=== PATIENT | male | born 1950 ===

== ENCOUNTER 2020-05-26 20:16 | Emergency (ER) | payer MEDICARE, BC ==
--- NOTE | 2020-05-26 21:59 | EDM.PDOC ---
ED HPI GENERAL MEDICAL PROBLEM - General Chief Complaint: Laceration Stated Complaint: CUT CHEECK Time Seen by Provider: 05/26/20 20:40 Source of Information: Reports: Patient History Limitations: Reports: No Limitations - History of Present Illness INITIAL COMMENTS - FREE TEXT/NARRATIVE: states he had sutures placed in his left cheek about 3 days ago ( unsure of sate) , 1-2 sutures came out spontaneously . then today he bumpeed his face and it started bleeding States he had surgery on the area years ago Onset: Today Onset Date: 05/26/20 Duration: Getting Worse Location: Reports: Face (left cheek) Quality: Reports: Ache Severity: Moderate Improves with: Reports: Rest Associated Symptoms: Reports: No Other Symptoms, Other (bleeding from wound site) ED ROS GENERAL - Review of Systems Review Of Systems: See Below Constitutional: Reports: No Symptoms HEENT: Reports: No Symptoms Respiratory: Reports: No Symptoms Cardiovascular: Reports: No Symptoms Endocrine: Reports: No Symptoms GI/Abdominal: Reports: No Symptoms Musculoskeletal: Reports: No Symptoms Skin: Reports: Other (repaired laceration of left cheek with one suture still in place) ED EXAM, SKIN/RASH Exam: See Below Exam Limited By: No Limitations General Appearance: Alert, WD/WN, No Apparent Distress Eye Exam: Bilateral Eye: EOMI Ears: Normal External Exam Nose: Normal Inspection Head: Atraumatic, Normocephalic Neck: Supple, Non-Tender Respiratory/Chest: Lungs Clear, Normal Breath Sounds Cardiovascular: Regular Rate, Rhythm GI/Abdominal: Soft, Non-Tender Neurological: Alert, Oriented, CN II-XII Intact Location, Skin: Face (left cheek with laceration about 3 cm long one suture in placed , bleeding controlled with pressure on the area) Course - Re-Assessments/Exams Free Text/Narrative Re-Assessment/Exam: 05/26/20 22:00 laceration on the cheek repaired with dermabond and then steri-strips applied to the area Pt tolerated this well Departure - Departure Time of Disposition: 10:05 Disposition: Home, Self-Care 01 Condition: Fair Clinical Impression: Laceration of cheek, left, complicated, Broken skin - Discharge Information *PRESCRIPTION DRUG MONITORING PROGRAM REVIEWED*: Not Applicable *COPY OF PRESCRIPTION DRUG MONITORING REPORT IN PATIENT RYAN: Not Applicable Instructions: Sutures, Kila, or Adhesive Wound Closure, [id number] Referrals: Zohaib Wells MD [Primary Care Provider] -
== END 2020-05-26 22:08 | disposition home or self-care (01) ==
LOC: FB.ED 20:16
DX: S01.412A Laceration without foreign body of left cheek and temporomandibular area, initial encounter (principal); W22.8XXA Striking against or struck by other objects, initial encounter
CPT/HCPCS: 12013; 99282; 99282-25

== ENCOUNTER 2022-10-24 18:08 | Inpatient (IN) | payer MEDICARE, BC ==
[2022-10-24] MEDS: Sodium Chloride 0.9% 10 ML Syringe FLUSH PRN ×3 (18:20→23:19)
[2022-10-24 18:48] LABS: BASE EXCESS VENOUS,POC 0 mmol/L (-2 - 3+); PCO2 VENOUS,POC 30 mmHg (41-51); PH VENOUS,POC 7.48 pH Units (7.32-7.43)
[2022-10-24 18:55] LABS: ESTIMATED GFR 58 mL/min (>60)
[2022-10-24] MEDS ORDERED: Sodium Chloride 0.9% 10 ML Syringe FLUSH PRN (19:29)
[2022-10-24] MEDS ORDERED: Acetaminophen 325 MG Tab PO PRN (19:29)
[2022-10-24] MEDS ORDERED: Enoxaparin 40 MG/0.4 ML Syringe SUBCUT SCH (19:30)
[2022-10-24 19:52] LABS: CORONAVIRUS COVID-19 NAA NEGATIVE (NEGATIVE)
[2022-10-24] MEDS: Enoxaparin 40 MG/0.4 ML Syringe SUBCUT SCH (21:47)
[2022-10-24] MEDS: cefTRIAXone 1 GM Vial IVPUSH SCH (22:02)
[2022-10-24] MEDS: Azithromycin 500 MG in Sodium Chloride 0.9% 250 ML IV SCH (22:11)
[2022-10-25 06:38] LABS: ESTIMATED GFR 79 mL/min (>60)
[2022-10-25] MEDS ORDERED: Nitroglycerin 0.4 MG Tab.SL SL PRN (10:23)
[2022-10-25] MEDS ORDERED: Loratadine 10 MG Tab PO PRN (10:23)
[2022-10-25] MEDS ORDERED: Acetaminophen 325 MG Tab PO PRN (10:23)
[2022-10-25] MEDS: Metoprolol Tartrate 100 MG Tab PO SCH (10:42)
[2022-10-25] MEDS: Lisinopril 20 MG Tab PO SCH (10:42)
[2022-10-25] MEDS: amLODIPine 10 MG Tab PO SCH (10:42)
[2022-10-25] MEDS: Citalopram 10 MG Tab PO SCH (10:42)
[2022-10-25] MEDS: QUEtiapine 100 MG Tab PO SCH ×3 (10:42→22:00)
[2022-10-25] MEDS: Aspirin 81 MG Tab.EC PO SCH (10:42)
[2022-10-25] MEDS: Carboxymethylcellulose Sodium 0.5% Ophth Soln 15 ML Bottle EYEBOTH SCH (10:43)
[2022-10-25] MEDS: cefTRIAXone 1 GM Vial IVPUSH SCH (18:53)
[2022-10-25] MEDS: Sodium Chloride 0.9% 10 ML Syringe FLUSH PRN ×2 (18:55→21:59)
[2022-10-25] MEDS: Azithromycin 500 MG in Sodium Chloride 0.9% 250 ML IV SCH (18:58)
[2022-10-25] MEDS: atorvaSTATin 20 MG Tab PO SCH (21:59)
[2022-10-25] MEDS: Enoxaparin 40 MG/0.4 ML Syringe SUBCUT SCH (22:00)
[2022-10-26 06:39] LABS: ESTIMATED GFR 90 mL/min (>60)
[2022-10-26] MEDS: Aspirin 81 MG Tab.EC PO SCH (08:44)
[2022-10-26] MEDS: Citalopram 10 MG Tab PO SCH (08:44)
[2022-10-26] MEDS: QUEtiapine 100 MG Tab PO SCH ×3 (08:45→21:12)
[2022-10-26] MEDS: Carboxymethylcellulose Sodium 0.5% Ophth Soln 15 ML Bottle EYEBOTH SCH (08:45)
[2022-10-26] MEDS: Furosemide 20 MG Tab PO SCH (08:45)
[2022-10-26] MEDS: Lisinopril 20 MG Tab PO SCH (08:49)
[2022-10-26] MEDS: amLODIPine 10 MG Tab PO SCH (08:50)
[2022-10-26] MEDS: Metoprolol Tartrate 100 MG Tab PO SCH (08:50)
[2022-10-26] MEDS ORDERED: Furosemide 20 MG/2 ML VIAL IVPUSH ONE (10:04)
[2022-10-26] MEDS: Sodium Chloride 0.9% 10 ML Syringe FLUSH PRN ×3 (10:15→19:30)
[2022-10-26] MEDS ORDERED: Furosemide 40 MG/4 ML VIAL IVPUSH ONE (11:09)
[2022-10-26] MEDS: cefTRIAXone 1 GM Vial IVPUSH SCH (18:36)
[2022-10-26] MEDS: Azithromycin 500 MG in Sodium Chloride 0.9% 250 ML IV SCH (18:36)
[2022-10-26] MEDS: Enoxaparin 40 MG/0.4 ML Syringe SUBCUT SCH (21:12)
[2022-10-26] MEDS: atorvaSTATin 20 MG Tab PO SCH (21:12)
[2022-10-26] MEDS: Albuterol/Ipratropium 3.0-0.5 MG/3 ML Neb Soln NEB PRN (21:14)
[2022-10-27 07:03] LABS: ESTIMATED GFR 90 mL/min (>60)
[2022-10-27] MEDS: Citalopram 10 MG Tab PO SCH (08:28)
[2022-10-27] MEDS: Metoprolol Tartrate 100 MG Tab PO SCH (08:28)
[2022-10-27] MEDS: amLODIPine 10 MG Tab PO SCH (08:29)
[2022-10-27] MEDS: QUEtiapine 100 MG Tab PO SCH ×3 (08:29→20:53)
[2022-10-27] MEDS: Aspirin 81 MG Tab.EC PO SCH (08:29)
[2022-10-27] MEDS: Carboxymethylcellulose Sodium 0.5% Ophth Soln 15 ML Bottle EYEBOTH SCH (08:30)
[2022-10-27] MEDS: Lisinopril 20 MG Tab PO SCH (08:30)
[2022-10-27] MEDS: Albuterol/Ipratropium 3.0-0.5 MG/3 ML Neb Soln NEB PRN ×2 (08:35→20:38)
[2022-10-27] MEDS: Amoxicillin/Clavulanate K 875-125 MG Tab PO SCH ×2 (11:17→22:06)
[2022-10-27] MEDS: Azithromycin 500 MG Tab PO SCH (17:13)
[2022-10-27] MEDS: atorvaSTATin 20 MG Tab PO SCH (20:53)
[2022-10-27] MEDS: Enoxaparin 40 MG/0.4 ML Syringe SUBCUT SCH (21:05)
[2022-10-28 06:24] LABS: ESTIMATED GFR 90 mL/min (>60)
[2022-10-28] MEDS: Albuterol/Ipratropium 3.0-0.5 MG/3 ML Neb Soln NEB PRN (07:27)
[2022-10-28] MEDS: Metoprolol Tartrate 100 MG Tab PO SCH (08:59)
[2022-10-28] MEDS: QUEtiapine 100 MG Tab PO SCH ×3 (08:59→20:40)
[2022-10-28] MEDS: amLODIPine 10 MG Tab PO SCH (09:00)
[2022-10-28] MEDS: Citalopram 10 MG Tab PO SCH (09:00)
[2022-10-28] MEDS: Aspirin 81 MG Tab.EC PO SCH (09:00)
[2022-10-28] MEDS: Furosemide 20 MG Tab PO SCH (09:00)
[2022-10-28] MEDS: Carboxymethylcellulose Sodium 0.5% Ophth Soln 15 ML Bottle EYEBOTH SCH (09:01)
[2022-10-28] MEDS: Lisinopril 20 MG Tab PO SCH (09:01)
[2022-10-28] MEDS: Amoxicillin/Clavulanate K 875-125 MG Tab PO SCH ×2 (10:42→21:20)
[2022-10-28] MEDS: Albuterol/Ipratropium 3.0-0.5 MG/3 ML Neb Soln NEB SCH ×3 (14:34→21:28)
[2022-10-28] MEDS: QUEtiapine 25 MG Tab PO PRN ×2 (17:10→18:18)
[2022-10-28] MEDS: Azithromycin 500 MG Tab PO SCH (18:18)
[2022-10-28] MEDS: atorvaSTATin 20 MG Tab PO SCH (20:40)
[2022-10-28] MEDS: Enoxaparin 40 MG/0.4 ML Syringe SUBCUT SCH (21:27)
[2022-10-29] MEDS: Albuterol/Ipratropium 3.0-0.5 MG/3 ML Neb Soln NEB SCH ×3 (01:55→10:04)
[2022-10-29 06:45] LABS: ESTIMATED GFR 79 mL/min (>60)
[2022-10-29] MEDS: Carboxymethylcellulose Sodium 0.5% Ophth Soln 15 ML Bottle EYEBOTH SCH (08:06)
[2022-10-29] MEDS: QUEtiapine 100 MG Tab PO SCH (08:06)
[2022-10-29] MEDS: Aspirin 81 MG Tab.EC PO SCH (08:06)
[2022-10-29] MEDS: Citalopram 10 MG Tab PO SCH (08:07)
[2022-10-29] MEDS: amLODIPine 10 MG Tab PO SCH (08:11)
[2022-10-29] MEDS: Lisinopril 20 MG Tab PO SCH (08:11)
[2022-10-29] MEDS: Metoprolol Tartrate 100 MG Tab PO SCH (08:11)
[2022-10-29] MEDS: Amoxicillin/Clavulanate K 875-125 MG Tab PO SCH (10:04)
== END 2022-10-29 13:45 | disposition home health service (06) | DRG 194 ==
LOC: FB.ED 18:08 → FB.MS 19:29
PROVIDERS: ADMIT Family Medicine; ATTEND Student in an Organized Health Care Education/Training Program
DX: J18.9 Pneumonia, unspecified organism (principal); E86.0 Dehydration; F03.B18 Unspecified dementia, moderate, with other behavioral disturbance; F03.90 Unspecified dementia, unspecified severity, without behavioral disturbance, psychotic disturbance, mood disturbance, and anxiety; I10 Essential (primary) hypertension; I25.10 Atherosclerotic heart disease of native coronary artery without angina pectoris; I11.0 Hypertensive heart disease with heart failure; I50.9 Heart failure, unspecified; Z79.84 Long term (current) use of oral hypoglycemic drugs; E78.5 Hyperlipidemia, unspecified; Z95.5 Presence of coronary angioplasty implant and graft; Z51.5 Encounter for palliative care; E66.01 Morbid (severe) obesity due to excess calories; I08.3 Combined rheumatic disorders of mitral, aortic and tricuspid valves; E78.00 Pure hypercholesterolemia, unspecified; E10.9 Type 1 diabetes mellitus without complications; Z20.822 Contact with and (suspected) exposure to COVID-19; Z98.61 Coronary angioplasty status; Z99.81 Dependence on supplemental oxygen; Z87.891 Personal history of nicotine dependence; Z79.82 Long term (current) use of aspirin; Z79.899 Other long term (current) drug therapy; I25.2 Old myocardial infarction
CPT/HCPCS: 0241U; 36415; 71045; 80048; 80053; 83605; 83880; 84484; 85025; 85610; 85730; 87040; 93005; 93010; 93306; 94150; 94640; 97116-GP; 97161-GP; 97165-GO; 97530-GO; 97530-GP; 99223; 99233; 99239; 99285; A9270-GY; J0456; J0696; J1650; J1940; J3490; J7050; J7620